=== PATIENT | female | born 1980 | race Hispanic/Latino ===

== ENCOUNTER 2016-12-16 13:29 | Inpatient (IN) | payer OTHER ==
--- NOTE | 2016-12-16 13:46 | OBDCSUM ---
Datetime: 12/16/2016 13:46 Follow up at, Provider: [facility] Discharge Diagnosis, Provider: False Labor - Undelivered Follow up in weeks, Provider: [facility] scheduled Discharge Diagnosis Prov Other: early labor
--- NOTE | 2016-12-16 13:47 | OBHP ---
Datetime: 12/16/2016 13:42 IP Adm Impression: Term, intrauterine IP Admit Plan: Discharge home Admit Comment, IP Provider: IU{P at 40w c/o irreg CTX starting 3h ago. No SROM. No VB. +FM. PMH: denies PSH: denies NKA PSOH denies A: early labor at term PLAN: D/C home labor instructoins f/u with CP Dr OF as scheduled this week chart rev'd Extremities - PN: Normal Abdomen - PN: Normal Back - PN: Normal Lungs - PN: Normal Heart - PN: Normal Thyroid - PN: Normal Neurologic - PN: Normal HEENT - PN: Normal General - PN: Normal Presentation-Admit: Vertex FHR - Baseline A Provider: 120 Membranes, Provider: Intact Comments, ACOG Physical Exam: ROS: General - no fatigue HEENT: No CARCAMO; no visual disturbance CV: no CP; no palpitations RESP: No Cough; no SOB GI: No N/V/D : No F/U/D MS: no joint pain Pool Provider: Negative IP Hx Assessment: The History has been Reviewed and is Current IP Chief Complaint: Uterine contractions NICHD Variability Prov Fetus A: Moderate 6-25bpm NICHD Accel Fetus A IP Provider: 15X15 FHR Category Provider Fetus A: Category I NICHD Decel Fetus A IP Provider: None Dilatation, Provider: 2 Effacement, Provider: 50 Station, Provider: -2 Genitourinary Exam: Normal
[2016-12-16 14:34] VITALS: BMI 26.4
--- NOTE | 2016-12-16 14:39 | OBADHP ---
Datetime: 12/16/2016 14:30 Admit Comment, IP Provider: IU{P at 40w c/o irreg CTX starting 3h ago. No VB. +FM...she was being discharged home but had SROM chart rev'd...care with Dr GASTON PM: denies PSH: denies Allergy PCN PSOH denies A: IUP at 40w SROM early labor; painful CTX PLAN: Admit to L_D labor, augmentatoin, pain management delivery and psotpartum disucssed labs..epidural requested Pelvic Type - PN: Adequate Extremities - PN: Normal Abdomen - PN: Normal Back - PN: Normal Breast - PN: Normal Lungs - PN: Normal Heart - PN: Normal Thyroid - PN: Normal Neurologic - PN: Normal HEENT - PN: Normal General - PN: Normal Presentation-Admit: Vertex FHR - Baseline A Provider: 130 Membranes, Provider: Ruptured Contraction Comments Provider: 2m Comments, ACOG Physical Exam: ROS: General - no fatigue HEENT: No CARCAMO; no visual disturbance CV: no CP; no palpitations RESP: No Cough; no SOB GI: No N/V/D : No F/U/D MS: no joint pain Pool Provider: Positive IP Hx Assessment: The History has been Reviewed and is Current IP Chief Complaint: Uterine contractions; Suspected ruptured membranes NICHD Variability Prov Fetus A: Moderate 6-25bpm NICHD Accel Fetus A IP Provider: 15X15 FHR Category Provider Fetus A: Category I Dilatation, Provider: 2-3 Effacement, Provider: 50 Station, Provider: -2 Genitourinary Exam: Normal IP Adm Impression: Term, intrauterine ; Active labor IP Admit Plan: Admit to unit; Initiate labor protocol Datetime: 12/16/2016 13:42 NICHD Decel Fetus A IP Provider: None Datetime: 11/27/2016 19:01 IP Chief Complaint Other: itching Vital Signs Provider: Reviewed; Within Normal Limits DTRs - PN: Normal
[2016-12-16] MEDS ORDERED: Lactated Ringer's 1,000 ML IV SCH (14:45)
[2016-12-16] MEDS ORDERED: Fentanyl/Bupivacaine HCl 250 ML EPI ONE (14:48)
[2016-12-16] MEDS ORDERED: Bupivacaine HCl 0.25% PF (10 ml) Inj ONE (14:48)
[2016-12-16] MEDS ORDERED: Lidocaine 1% Inj (20ml) ONE (15:01)
[2016-12-16 15:02] LABS: BASO # 0.1 K/uL (0.0-0.2); BASO % 0.6 % (0.0-2.0); EOS # 0.1 K/uL (0.0-0.7); EOS % 1.1 % (0.0-4.0); LYMPH # 2.8 K/uL (1.0-4.3); LYMPH % 22.1 % (20.0-40.0); MEAN CELL VOLUME 91.6 fl (81.0-99.0); MEAN CORPUSCULAR HEMOGLOBIN 30.4 pg (27.0-31.0); MEAN CORPUSCULAR HGB CONC 33.1 g/dL (33.0-37.0); MEAN PLATELET VOLUME 8.3 fl (7.2-11.7); MONO # 0.9 K/uL (0.0-0.8); MONO % 7.6 % (0.0-10.0); NEUT # 8.5 K/uL (1.8-7.0); NEUT % 68.6 % (50.0-75.0); RED CELL DISTRIBUTION WIDTH 13.4 % (11.5-14.5); WHITE BLOOD COUNT 12.5 K/uL (4.8-10.8)
[2016-12-16] MEDS ORDERED: Oxycodone/Acetaminophen 5/325 mg Tab PO PRN ×2 (16:36→18:09)
--- NOTE | 2016-12-16 16:51 | OBDS ---
[employer] [employer] Delivery Doctor: Zakiya Florentino DO [employer] Professor: Sarah Caldwell RN MATERNAL INFORMATION Delivery Anesthesia: Local; Epidural Estimated Blood Loss (ml): 200 Placenta Cultured: No Maternal Complications: None RN Comments: pt delivered viable male, infant was dried and placed on maternal chest for skin to ski n. apgars were 9 and 9. was taken to warmer and weighed, returned to t chest for bonding and l atching. pt and remained in stable condition. Provider Comments: She was fully dilated and pushing. Epidural was shut off at 15:50pm. FHR noted to be 80's and . MLE was performed. of live male infant. was bulb suctioned n asopharygeally, delayed cord clamp and skin to skin was done. 9,9. Placenta was delivered int act spontaneously. EBL 200cc She remained stable LABOR SUMMARY EDC: 12/14/2016 00:00 No. Babies in Womb: 1 Attempted: No Labor Anesthesia: Epidural LABOR INFORMATION Reason for Induction: Not Applicable Onset of Labor: 12/16/2016 10:00 Complete Dilatation: 12/16/2016 15:00 Group B Beta Strep: Negative Steroids Given: None Reason Steroids Not Administered: Not Applicable MEMBRANES Membranes Rupture Method: Spontaneous Rupture of Membranes: 12/16/2016 14:30 Length of Rupture (hrs): 1.55 Amniotic Fluid Color: Clear Amniotic Fluid Amount: Small Amniotic Fluid Odor: Normal STAGES OF LABOR Stage 1 hrs: 5 Stage 1 min: 0 Stage 2 hrs: 1 Stage 2 min: 3 Stage 3 hrs: 0 Stage 3 min: 15 Total Time in Labor hrs: 6 Total Time in Labor min: 18 VAGINAL DELIVERY Episiotomy: Median Laceration Extension: N/A Laceration Type: None Laceration Repair: Yes Laceration Repair Note: 1% Lidocaine infiltrated. MLE reparied with 2.0 Vicryl Rapide suture Initial Vag Sponge Count: 5 Final Vag Sponge Count: 5 Initial Vag Sharps Count: 2 Final Vag Sharps Count: 2 Sponge Count Correct: Yes Sharps Count Correct: Yes Count Comment: Sutures x 2 syringe x 1 Lap pad x 5 BABY A INFORMATION Delivery Date/Time: 12/16/2016 16:03 Method of Delivery: Vaginal Born in Route : No : N/A Forceps: N/A Vacuum Extraction: N/A Shoulder Dystocia : No SHOULDER DYSTOCIA BABY A Infant Delivery Date/Time: 12/16/2016 16:03 PRESENTATION/POSITION BABY A Presentation: Cephalic PLACENTA INFORMATION BABY A Placenta Delivery Time : 12/16/2016 16:18 Placenta Method of Delivery: Spontaneous Placenta Status: Delivered SCORES BABY A Heart Rate 1 min: >100 bpm Resp Effort 1 min: Good Cry Reflex Irritability 1 min: Cough or Sneeze or Pulls Away Muscle Tone 1 min: Active Motion Color 1 min: Body Cyrus, Extremities Blue Resuscitation Effort 1 min: N/A SCORE 1 MIN: 9 Heart Rate 5 min: >100 bpm Resp Effort 5 min: Good Cry Reflex Irritability 5 min: Cough or Sneeze or Pulls Away Muscle Tone 5 min: Active Motion Color 5 min: Body Cyrus, Extremities Blue Resuscitation Effort 5 min: N/A SCORE 5 MIN: 9 INFORMATION BABY A Gestational Age at Delivery: 40.2 Gestational Status: Term Outcome : Liveborn Infant Condition : Stable Infant Sex: Male WEIGHT/LENGTH BABY A Infant Birthweight (gms): 3915 Weight (lb): 8 Infant Weight (oz): 10 CORD INFORMATION BABY A No. Cord Vessels: 3 Nuchal Cord : N/A Cord Blood Taken: Yes Infant Suction: Mouth
[2016-12-17 07:53] LABS: HEMATOCRIT 38.8 % (34.0-47.0); MEAN CELL VOLUME 91.3 fl (81.0-99.0); MEAN CORPUSCULAR HEMOGLOBIN 30.8 pg (27.0-31.0); MEAN CORPUSCULAR HGB CONC 33.7 g/dL (33.0-37.0); RED CELL DISTRIBUTION WIDTH 13.3 % (11.5-14.5); WHITE BLOOD COUNT 15.8 K/uL (4.8-10.8)
--- NOTE | 2016-12-17 09:40 | OBPPN ---
Datetime: 12/17/2016 09:38 PP Pain Prov: Within normal limits PP Nausea Prov: Denies PP Flatus Prov: Yes PP Breasts Prov: Not Done PP Heart Prov: Normal PP Lungs Prov: Normal PP Abdomen/Uterus Prov: Normal PP Lochia Prov: Not Done PP Vulva/Perineum Prov: Not Done PP CVA Tenderness Prov: Normal PP Extremities Prov: Normal PP Progress Prov: Normal PP Impression Prov: Normal progression PP Plan Prov: Continue present management PP Progress Note Prov: patient doing well no complaints ambulating pain well controlled vss afebrile uterus firm ext no homans PPD 1 OOBTC regular diet motirn as needed d/c in am Vital Signs Provider PP: Reviewed
--- NOTE | 2016-12-18 08:36 | OBPPN ---
Datetime: 12/18/2016 08:31 PP Pain Prov: Within normal limits PP Abdomen/Uterus Prov: Normal PP Lochia Prov: Normal PP Extremities Prov: Normal PP Progress Prov: Normal PP Impression Prov: Normal progression PP Plan Prov: Discharge PP Progress Note Prov: PPD 2 s/p , doing well, breast feeding Discharge home today Vital Signs Provider PP: Reviewed; Within Normal Limits
--- NOTE | 2016-12-18 08:36 | OBDCSUM ---
Datetime: 12/18/2016 08:34 Discharged to, Provider: Home Follow up at, Provider: Dr. Muñoz Disch Instr Activity: Normal activity; May Shower Disch Instr Diet: Regular Discharge Instructions, Provider: Routine instructions given Discharge Diagnosis, Provider: Term Delivered Discharge Time: 12/18/2016 08:34 Follow up in weeks, Provider: 6 weeks Contraception discussed, Prov: No Disch Activity Restrictions: No exercising; No sexual activity; Nothing in vagina - Huckabay, melly bianchi
== END 2016-12-18 12:55 | disposition home or self-care (01) | DRG 775 ==
LOC: H.EROB2 13:29 → H.L&D 14:35 → H.OB/GYN 17:50
PROVIDERS: ADMIT Obstetrics & Gynecology; ATTEND Obstetrics & Gynecology
PROC: 10E0XZZ Delivery of Products of Conception, External Approach (ICD-10-PCS; principal; 2016-12-16)
PROC: 0W8NXZZ Division of Female Perineum, External Approach (ICD-10-PCS; 2016-12-16)
PROC: 4A1HXCZ Monitoring of Products of Conception, Cardiac Rate, External Approach (ICD-10-PCS; 2016-12-16)
DX: O80 Encounter for full-term uncomplicated delivery (principal); Z3A.40 40 weeks gestation of pregnancy; Z37.0 Single live birth; Z88.0 Allergy status to penicillin